=== PATIENT | male | born 1945 | race Caucasian/White ===

== ENCOUNTER 2019-12-12 12:42 | Observation (INO) ==
[2019-12-12 13:16] LABS: Hematocrit 43.2 % (37.5-50.1); Hemoglobin 14.1 g/dL (12.9-16.9); Mean Corpuscular HGB Conc 32.6 g/dL (31.6-35.5); Mean Corpuscular Hemoglobin 31.7 pg (28.0-33.3); Mean Corpuscular Volume 97.1 fL (83.0-100.0); Mean Platelet Volume 10.6 fL (9.4-12.4); Platelet Count 174 K/mcL (140-400); Red Blood Count 4.45 M/mcL (4.19-5.50); Red Cell Distribution Width 12.7 % (11.5-14.5); White Blood Count 6.1 K/mcL (4.3-11.1)
[2019-12-12 13:41] LABS: BUN/Creatinine Ratio 17 (6-26); Blood Urea Nitrogen 14 mg/dL (8-23); Calcium 9.7 mg/dL (8.6-10.3); Carbon Dioxide 23 mEq/L (23-29); Chloride 107 mEq/L (98-107); Glucose 95 mg/dL (70-105); Osmolality,Calculated 288 (280-300); Potassium 4.2 mEq/L (3.5-5.1); Sodium 139 mEq/L (136-145); Troponin I < 0.03 ng/mL (< 0.04); eGFR For African Americans > 60 (> 60); eGFR For Non-African Americans > 60 (> 60)
[2019-12-12 14:07] LABS: INR 2.9; Prothrombin Time 32.7 Seconds (9.4-12.1)
[2019-12-12 14:10] LABS: Activated Partial Thrombo Time 58.6 Seconds (26.0-36.0)
[2019-12-12] MEDS ORDERED: Benzonatate 100 MG CAPSULE PO PRN (17:20)
[2019-12-12] MEDS ORDERED: Warfarin perPT PO PRN (18:00)
[2019-12-12] MEDS ORDERED: *HR* Warfarin 2 MG TABLET PO ONE (18:00)
[2019-12-13 05:33] LABS: Basophils % 0.6 %; Eosinophils # 0.4 K/mcL (0.0-0.6); Eosinophils % 8.3 %; Hemoglobin 13.3 g/dL (12.9-16.9); Immature Granulocytes % 0.2 % (0-4); Lymphocytes # 1.3 K/mcL (0.6-4.6); Lymphocytes % 27.3 %; Mean Corpuscular HGB Conc 33.3 g/dL (31.6-35.5); Mean Corpuscular Hemoglobin 32.4 pg (28.0-33.3); Mean Corpuscular Volume 97.3 fL (83.0-100.0); Mean Platelet Volume 10.5 fL (9.4-12.4); Monocytes # 0.5 K/mcL (0.0-1.3); Monocytes % 9.9 %; Neutrophils # 2.6 K/mcL (1.6-8.9); Platelet Count 159 K/mcL (140-400); Red Blood Count 4.11 M/mcL (4.19-5.50); Red Cell Distribution Width 12.6 % (11.5-14.5); Segmented Neutrophils % 53.7 %; White Blood Count 4.8 K/mcL (4.3-11.1)
[2019-12-13 05:39] LABS: INR 3.2; Prothrombin Time 36.2 Seconds (9.4-12.1)
[2019-12-13 05:52] LABS: BUN/Creatinine Ratio 14 (6-26); Blood Urea Nitrogen 11 mg/dL (8-23); Calcium 9.3 mg/dL (8.6-10.3); Carbon Dioxide 26 mEq/L (23-29); Chloride 107 mEq/L (98-107); Glucose 100 mg/dL (70-105); Osmolality,Calculated 285 (280-300); Potassium 3.8 mEq/L (3.5-5.1); Sodium 138 mEq/L (136-145); eGFR For African Americans > 60 (> 60); eGFR For Non-African Americans > 60 (> 60)
[2019-12-13] MEDS: Aspirin 81 MG TAB.CHEW PO SCH (07:37)
[2019-12-13] MEDS: Loratadine 10 MG TABLET PO SCH (07:37)
[2019-12-13] MEDS: Multivit/Ca/Min/Fe/FA 1 TAB TABLET PO SCH (07:37)
[2019-12-13] MEDS: Folic Acid 1 MG TABLET PO SCH (07:37)
[2019-12-13] MEDS: Metoprolol XL (24 HR) Succ 25 MG TAB.ER.24H PO SCH (07:37)
[2019-12-13] MEDS: Cholecalciferol (D-3) 1,000 UNIT (25MCG) TABLET PO SCH (07:37)
[2019-12-13] MEDS ORDERED: Perflutren Lipid Microsphere 1.3 ML in 0.9 % Sodium Chloride 8.7 ML IVP ONE (10:11)
[2019-12-13] MEDS ORDERED: *HR* Warfarin 1 MG TABLET PO ONE (18:00)
[2019-12-14 01:45] LABS: INR 2.6
[2019-12-14 07:15] VITALS: BP 122/76
[2019-12-14] MEDS: Loratadine 10 MG TABLET PO SCH (09:35)
[2019-12-14] MEDS: Cholecalciferol (D-3) 1,000 UNIT (25MCG) TABLET PO SCH (09:35)
[2019-12-14] MEDS: Aspirin 81 MG TAB.CHEW PO SCH (09:35)
[2019-12-14] MEDS: Metoprolol XL (24 HR) Succ 25 MG TAB.ER.24H PO SCH (09:35)
[2019-12-14] MEDS: Multivit/Ca/Min/Fe/FA 1 TAB TABLET PO SCH (09:35)
[2019-12-14] MEDS: Folic Acid 1 MG TABLET PO SCH (09:35)
[2019-12-14] MEDS ORDERED: *HR* Warfarin 2 MG TABLET PO ONE (18:00)
== END 2019-12-14 11:44 | disposition home or self-care (01) ==
LOC: EMEROOARM 12:42 → 3BNU 12:42
PROVIDERS: ADMIT Internal Medicine; ATTEND Internal Medicine